=== PATIENT | male | born 1980 | race Caucasian/White ===

== ENCOUNTER 2023-10-27 12:13 | Emergency (ER) | payer SELFPAY ==
[~2023-10-27] VITALS: Ht 175.3 cm; Wt 85.0 kg
[2023-10-27 12:15] VITALS: TEMP 98.6; O2SAT 98
[2023-10-27] MEDS ORDERED: KETOROLAC 60MG/2ML VIAL IM ONE (12:30)
[2023-10-27] MEDS ORDERED: LIDOCAINE 5% PATCH TOP SCH (12:30)
[2023-10-27] MEDS ORDERED: KETOROLAC 60MG/2ML VIAL IM NR (18:00)
[2023-10-27 18:23] VITALS: BP 142/97; PULSE 113; RESP 24
[2023-10-27] MEDS ORDERED: METH-653 MT (18:51)
== END 2023-10-27 21:04 | disposition home or self-care (01) ==
LOC: ER 12:39
DX: M54.50 Low back pain, unspecified (principal); G89.29 Other chronic pain; F32.9 Major depressive disorder, single episode, unspecified
CPT/HCPCS: 99283; 96372; J1885

== ENCOUNTER 2023-10-27 21:14 | Emergency (ER) | payer SELFPAY ==
[~2023-10-27] VITALS: Ht 177.8 cm; Wt 101.0 kg
[~2023-10-27 21:14] MED LIST: METH-653 MT
[2023-10-27 21:30] VITALS: BP 144/104; PULSE 110; RESP 20; TEMP 98; O2SAT 98
== END 2023-10-28 00:18 | disposition home or self-care (01) ==
LOC: ER 21:14
DX: Z65.9 Problem related to unspecified psychosocial circumstances (principal)
CPT/HCPCS: 99281

== ENCOUNTER 2024-04-26 08:57 | Emergency (ER) | payer MEDICAID ==
[~2024-04-26] VITALS: Ht 172.7 cm; Wt 90.0 kg
[2024-04-26 09:00] VITALS: O2SAT 99
[2024-04-26] MEDS: LEVETIRACETAM 1000MG PREMIX 100 ML IV ONE (09:21)
[2024-04-26 09:23] LABS: BASOPHILS % 1.2 % (0.0-2.0); EOSINOPHILS % 4.9 % (0.0-5.0); HEMATOCRIT. 43.3 % (42.0-52.0); HEMOGLOBIN. 13.7 g/dL (14.0-18.0); LYMPHOCYTES % 22.9 % (20.0-50.0); MEAN CORPUSCULAR HEMOGLOBIN 26.4 pg (28.0-32.0); MEAN CORPUSCULAR HGB CONC 31.7 g/dL (31.0-37.0); MEAN CORPUSCULAR VOLUME 83.1 fL (80.0-94.0); MEAN PLATELET VOLUME 7.2 fl (7.4-10.4); MONOCYTES % 10.8 % (2.0-8.0); NEUTROPHILS % 60.2 % (40.0-76.0); PLATELET 271 x1000/uL (130-400); RED BLOOD CELL COUNT 5.21 mill/uL (4.7-6.1); RED CELL DISTRIBUTION WIDTH 15.4 % (11.6-14.6)
[2024-04-26 09:27] LABS: CHLORIDE 106 mEq/L (98-107); SODIUM 138 mEq/L (136-145)
[2024-04-26 09:28] LABS: CARBON DIOXIDE 22 mEq/L (21-32)
[2024-04-26 09:33] LABS: CREATININE 0.8 mg/dL (0.6-1.3); GLUCOSE 131 mg/dL (70-105)
[2024-04-26 09:34] LABS: UREA NITROGEN BLOOD 16 mg/dL (9-23)
[2024-04-26 09:36] LABS: ETHANOL BLOOD < 10 mg/dL (<10)
[2024-04-26 11:34] VITALS: BP 141/82; PULSE 69; RESP 12; TEMP 98.6
== END 2024-04-26 11:46 | disposition home or self-care (01) ==
LOC: ER 09:10
DX: R56.9 Unspecified convulsions (principal); Z88.1 Allergy status to other antibiotic agents
CPT/HCPCS: 80048; 80320; 85025; 36415; 70450; 96374; 99285; J1953; Z7610 ×2; G0480